=== PATIENT | male | born 1960 | race Caucasian/White ===

== ENCOUNTER 2017-11-30 08:43 | Emergency (ER) | payer OTHER, MEDICAID ==
[~2017-11-30] VITALS: Ht 170.2 cm; Wt 64.0 kg
[~2017-11-30 08:43] MED LIST: CEPH500C5 PO; HYDR-569 PO; INSU100V9 SQ; NAPR-1154 PO; SULF1TAB49 PO; SYRI-641
[2017-11-30] MEDS ORDERED: LANTUS SQ (09:31)
[2017-11-30] MEDS ORDERED: NOVRI SQ (09:31)
[2017-11-30] MEDS ORDERED: [UNRECOGNIZED DRUG - CODE] SQ (09:31)
[2017-11-30 09:40] VITALS: BP 128/83
== END 2017-11-30 09:45 | disposition home or self-care (01) ==
LOC: ER 08:43
DX: Z76.0 Encounter for issue of repeat prescription (principal); E11.9 Type 2 diabetes mellitus without complications; Z59.0 Homelessness; Z56.0 Unemployment, unspecified; Z60.2 Problems related to living alone; Z79.4 Long term (current) use of insulin; Z79.899 Other long term (current) drug therapy
CPT/HCPCS: 99283

== ENCOUNTER 2018-01-20 19:33 | Emergency (ER) | payer OTHER, MEDICAID ==
[~2018-01-20] VITALS: Ht 170.2 cm; Wt 60.0 kg
[~2018-01-20 19:33] MED LIST changes: +GABA300C PO; +INSU100V11 SQ; +NOVRI SQ; +[UNRECOGNIZED DRUG - CODE] SQ
[2018-01-20] MEDS ORDERED: sulfamethoxazole/trimethoprim DS (800/160mg) tablet PO ONE (20:10)
[2018-01-20] MEDS ORDERED: [UNRECOGNIZED DRUG - CODE] (20:15)
[2018-01-20] MEDS ORDERED: GABA-532 PO (20:15)
[2018-01-20] MEDS ORDERED: LANTUS SQ (20:15)
[2018-01-20] MEDS ORDERED: NOVRI SQ (20:15)
[2018-01-20] MEDS ORDERED: [UNRECOGNIZED DRUG - CODE] (20:15)
[2018-01-20] MEDS ORDERED: BACDS PO (20:15)
[2018-01-20] MEDS ORDERED: [UNRECOGNIZED DRUG - CODE] (20:15)
[2018-01-20 20:43] VITALS: BP 124/77
== END 2018-01-20 20:47 | disposition home or self-care (01) ==
LOC: ER 19:33
DX: L02.416 Cutaneous abscess of left lower limb (principal); L02.01 Cutaneous abscess of face; L02.415 Cutaneous abscess of right lower limb; E10.9 Type 1 diabetes mellitus without complications; Z76.0 Encounter for issue of repeat prescription; Z59.0 Homelessness; Z56.0 Unemployment, unspecified; Z79.4 Long term (current) use of insulin; Z79.899 Other long term (current) drug therapy
CPT/HCPCS: 82948; 99283

== ENCOUNTER 2018-01-30 20:07 | Emergency (ER) | payer OTHER, MEDICAID ==
[~2018-01-30] VITALS: Ht 170.2 cm; Wt 60.6 kg
[~2018-01-30 20:07] MED LIST changes: +BACDS PO; +GABA-532 PO; +LANTUS SQ; +[UNRECOGNIZED DRUG - CODE]; +[UNRECOGNIZED DRUG - CODE]; +[UNRECOGNIZED DRUG - CODE]
[2018-01-30] MEDS ORDERED: LEVO500T89 PO (21:41)
[2018-01-30 22:38] VITALS: BP 139/71
== END 2018-01-30 22:44 | disposition home or self-care (01) ==
LOC: ER 20:07
DX: L03.031 Cellulitis of right toe (principal); E10.621 Type 1 diabetes mellitus with foot ulcer; L97.519 Non-pressure chronic ulcer of other part of right foot with unspecified severity; E10.65 Type 1 diabetes mellitus with hyperglycemia; Z79.4 Long term (current) use of insulin; Z60.2 Problems related to living alone; Z59.0 Homelessness; Z56.0 Unemployment, unspecified; Z79.899 Other long term (current) drug therapy
CPT/HCPCS: 73660; 82948; 99284

== ENCOUNTER 2018-02-13 17:35 | Emergency (ER) | payer MEDICAID, OTHER ==
[~2018-02-13] VITALS: Ht 170.2 cm; Wt 60.6 kg
[~2018-02-13 17:35] MED LIST changes: -BACDS PO
[2018-02-13] MEDS ORDERED: insulin regular, human 10 units/0.1 ml syringe IV ONE (17:55)
[2018-02-13] MEDS ORDERED: normal saline 1000ML IV soln IV ONE (17:55)
[2018-02-13 18:16] LABS: BASOPHILS # (AUTO) 0.1 X10'3 (0-0.2); BASOPHILS % (AUTO) 0.8 % (0-1); EOSINOPHILS # (AUTO) 0.2 X10'3 (0-0.9); EOSINOPHILS % (AUTO) 2.3 % (0-6); HEMOGLOBIN 13.4 g/dl (14.0-17.9); LYMPHOCYTES # (AUTO) 1.2 X10'3 (1.1-4.8); LYMPHOCYTES % (AUTO) 17.4 % (21-51); MEAN CORPUSCULAR HEMOGLOBIN 30.5 PG (27.0-31.0); MEAN CORPUSCULAR HGB CONC 35.3 % (33.0-36.5); MEAN CORPUSCULAR VOLUME 86.2 FL (78-98); MEAN PLATELET VOLUME 7.9 FL (7.4-10.4); MONOCYTES # (AUTO) 0.5 X10'3 (0-0.9); MONOCYTES % (AUTO) 6.8 % (2-12); NEUTROPHILS # (AUTO) 4.9 X10'3 (1.8-7.7); NEUTROPHILS % (AUTO) 72.7 % (42-75); PLATELET COUNT 253 X10'3 (140-440); RED BLOOD COUNT 4.41 X10'6 (4.70-6.10); RED CELL DISTRIBUTION WIDTH 12.3 % (11.5-14.5); WHITE BLOOD COUNT 6.8 X10'3 (4.5-11.0)
[2018-02-13 18:17] LABS: CLARITY,URINE CLEAR (Clear); COLOR,URINE YELLOW (Yellow); GLUCOSE, URINE >=1000 mg/dl (Neg); KETONES,URINE NEGATIVE (Neg); LEUKOCYTE ESTERASE ,URINE NEGATIVE (Neg); NITRITES, URINE NEGATIVE (Neg); OCCULT BLOOD,URINE NEGATIVE (Neg); PH,URINE 5.5 (4.8-8.0); PROTEIN,URINE NEGATIVE (Neg); UROBILINOGEN,URINE 0.2 E.U/dL (0.2-1.0)
[2018-02-13 18:33] LABS: BACTERIA,URINE NONE SEEN /HPF (Neg); MUCUS STRANDS FEW /LPF (Neg); UA COLLECTION TYPE CLN CATCH MIDSTREAM; WBC,URINE NONE SEEN /HPF (0-4)
[2018-02-13 18:34] LABS: RBC,URINE 0-2 /HPF (0-2); SQUAMOUS EPITHELIAL CELL,UR FEW /LPF (FEW)
[2018-02-13 18:41] LABS: ABG BASE EXCESS 2.3 mmol/L (-2.0-3.0); ABG HCO3 25.8 mmol/L (22.0-26.0); ABG OXYGEN SATURATION 97.6 % (95-98); ABG PH (T) 7.463 (7.350-7.450); ABG PO2 (T) 111.8 mmHg (83-108); ALLEN'S TEST Positive; FCOHb 0.4 % (0.5-1.5); FMetHb 0.3 % (0.3-1.12); FO2Hb 96.9 % (94-100); PATIENT TEMPERATURE 37.3; TOTAL HEMOGLOBIN 13.1 G/dl (14.0-18.0)
[2018-02-13 19:09] LABS: ALANINE AMINOTRANSFERASE 35 U/L (12-78); ALBUMIN 3.2 G/DL (3.4-5.0); ALBUMIN/GLOBULIN RATIO 0.9 (1.1-1.5); ALKALINE PHOSPHATASE 137 IU/L (46-116); ANION GAP 9 (8-16); ASPARTATE AMINO TRANSFERASE 13 U/L (10-37); BILIRUBIN,TOTAL 0.3 MG/DL (0.1-1.0); BLOOD UREA NITROGEN 19 MG/DL (7-18); BUN/CREATININE RATIO 19.6 (5.4-32.0); CALCIUM 8.9 MG/DL (8.5-10.1); CHLORIDE 99 MMOL/L (99-107); CREATININE 0.97 MG/DL (0.60-1.10); MAGNESIUM 1.9 MG/DL (1.5-2.4); PHOSPHORUS 3.8 MG/DL (2.3-4.5); POTASSIUM 3.5 MMOL/L (3.5-5.1); SODIUM 137 MMOL/L (135-145); TOTAL CARBON DIOXIDE 29.2 MMOL/L (24-32); TOTAL PROTEIN 6.7 G/DL (6.4-8.2); eGFR 80 ML/MIN
[2018-02-13 19:13] LABS: GLUCOSE 479 MG/DL (70-104)
[2018-02-13 20:22] VITALS: BP 159/97
== END 2018-02-13 20:24 | disposition home or self-care (01) ==
LOC: ER 17:35
DX: R53.83 Other fatigue (principal); E10.65 Type 1 diabetes mellitus with hyperglycemia; Z59.0 Homelessness; Z79.4 Long term (current) use of insulin; Z56.0 Unemployment, unspecified; Z79.899 Other long term (current) drug therapy
CPT/HCPCS: 36415; 36600; 71045; 80053; 81001; 82803; 82948; 83605; 83735; 84100; 84145; 84439; 84443; 84484; 85018; 85025; 87040; 93005; 96361; 96374; 99285; J1815; J7030

== ENCOUNTER 2019-02-01 13:51 | Inpatient (IN) | payer MEDICAID, OTHER | END 2019-02-03 17:45 | disposition left against medical advice (07) | LOC: ER 13:51 → ED HOLD 17:05 → SUR 3N 23:00 | DX: M86.9 Osteomyelitis, unspecified (principal); E11.42 Type 2 diabetes mellitus with diabetic polyneuropathy; E11.69 Type 2 diabetes mellitus with other specified complication; E11.65 Type 2 diabetes mellitus with hyperglycemia; L03.90 Cellulitis, unspecified ==

== ENCOUNTER → 2019-02-05 | Emergency (ER) | payer MEDICAID, OTHER ==
[~2019-02-05] VITALS: Ht 170.2 cm; Wt 61.4 kg
[~2019-02-05] MED LIST changes: -CEPH500C5 PO; +CHOL10002 PO; +FLUO20CA39 PO; -GABA300C PO; -HYDR-569 PO; -INSU100V11 SQ; +INSU100V13 SQ; -INSU100V9 SQ; -LANTUS SQ; +LEVO500T89 PO; +MULT-933 PO; +MULT1TAB74 PO; -NAPR-1154 PO; -NOVRI SQ; +RISP0.5T74 PO; +RISP2TAB3 PO; +SIMV10TA6 PO; +SIMV20TA5 PO; -SULF1TAB49 PO; -SYRI-641; -[UNRECOGNIZED DRUG - CODE]; -[UNRECOGNIZED DRUG - CODE]; -[UNRECOGNIZED DRUG - CODE]; -[UNRECOGNIZED DRUG - CODE] SQ
[2019-02-05 16:51] VITALS: BP 140/65
--- NOTE | 2019-02-05 18:13 | NUR ---
FOLLOW UP WITH SURGEON SOON POSSIBLE
== END | disposition home or self-care (01) ==
LOC: ER 16:12
DX: Z48.01 Encounter for change or removal of surgical wound dressing (principal); E11.42 Type 2 diabetes mellitus with diabetic polyneuropathy; Z98.890 Other specified postprocedural states; Z59.0 Homelessness; Z56.0 Unemployment, unspecified; Z88.5 Allergy status to narcotic agent; Z79.899 Other long term (current) drug therapy; Z79.4 Long term (current) use of insulin
CPT/HCPCS: 99284

== ENCOUNTER 2019-02-11 14:22 | Emergency (ER) | payer MEDICAID, OTHER ==
[~2019-02-11] VITALS: Ht 170.2 cm; Wt 63.6 kg
[~2019-02-11 14:22] MED LIST changes: -LEVO500T89 PO; -MULT1TAB74 PO; -RISP0.5T74 PO; -SIMV20TA5 PO
[2019-02-11 15:31] LABS: BASOPHILS # (AUTO) 0.1 X10'3 (0-0.2); BASOPHILS % (AUTO) 0.6 % (0-1); EOSINOPHILS % (AUTO) 0.4 % (0-6); HEMATOCRIT 30.8 % (42.0-52.0); HEMOGLOBIN 10.4 g/dl (14.0-17.9); LYMPHOCYTES # (AUTO) 0.4 X10'3 (1.1-4.8); LYMPHOCYTES % (AUTO) 5.1 % (21-51); MEAN CORPUSCULAR HEMOGLOBIN 28.6 PG (27.0-31.0); MEAN CORPUSCULAR HGB CONC 33.6 g/dL (33.0-36.5); MEAN CORPUSCULAR VOLUME 84.9 FL (78-98); MEAN PLATELET VOLUME 6.8 FL (7.4-10.4); MONOCYTES # (AUTO) 0.6 X10'3 (0-0.9); MONOCYTES % (AUTO) 7.1 % (2-12); NEUTROPHILS # (AUTO) 7.3 X10'3 (1.8-7.7); NEUTROPHILS % (AUTO) 86.8 % (42-75); PLATELET COUNT 423 X10'3 (140-440); RED BLOOD COUNT 3.63 X10'6 (4.70-6.10); WHITE BLOOD COUNT 8.4 X10'3 (4.5-11.0)
[2019-02-11] MEDS ORDERED: CefTRIAXone/D5W-Rocephin 1gm 50 ML IV ONE (15:35)
[2019-02-11] MEDS ORDERED: normal saline 1000ML IV soln IVB ONE (15:35)
[2019-02-11 15:41] LABS: PROTHROMBIN TIME 9.8 SECONDS (9.0-12.0)
[2019-02-11 15:54] LABS: ALANINE AMINOTRANSFERASE 23 U/L (12-78); ALBUMIN 3.1 G/DL (3.4-5.0); ALBUMIN/GLOBULIN RATIO 0.7 (1.1-1.5); ALKALINE PHOSPHATASE 103 IU/L (46-116); ANION GAP 10 (8-16); ASPARTATE AMINO TRANSFERASE 14 U/L (10-37); BILIRUBIN,TOTAL 0.3 MG/DL (0.1-1.0); BLOOD UREA NITROGEN 27 MG/DL (7-18); BUN/CREATININE RATIO 20.5 (5.4-32.0); CALCIUM 9.3 MG/DL (8.5-10.1); CHLORIDE 95 MMOL/L (99-107); CREATININE 1.32 MG/DL (0.60-1.10); POTASSIUM 3.9 MMOL/L (3.5-5.1); SODIUM 131 MMOL/L (135-145); TOTAL CARBON DIOXIDE 26.3 MMOL/L (24-32); TOTAL PROTEIN 7.4 G/DL (6.4-8.2); eGFR 56 ML/MIN
[2019-02-11 16:01] LABS: GLUCOSE 647 MG/DL (70-104)
[2019-02-11] MEDS ORDERED: insulin regular, human 10 units/0.1 ml syringe IV ONE (16:15)
--- NOTE | 2019-02-11 17:15 | NUR ---
patient received in bed 5.
--- NOTE | 2019-02-11 17:30 | NUR ---
unable to void at this time,urinal at bedside.
[2019-02-11 17:32] VITALS: BP_DIAS 68
[2019-02-11] MEDS ORDERED: SIMV20TA5 PO (17:36)
[2019-02-11] MEDS ORDERED: FLUO20CA39 PO (17:36)
[2019-02-11] MEDS ORDERED: GABA-532 PO (17:37)
[2019-02-11] MEDS ORDERED: MULT1TAB74 PO (17:37)
[2019-02-11] MEDS ORDERED: RISP0.5T74 PO (17:37)
[2019-02-11] MEDS ORDERED: LEVO500T89 PO (17:54)
== END 2019-02-11 18:16 | disposition home or self-care (01) ==
LOC: ER 14:22
DX: T87.43 Infection of amputation stump, right lower extremity (principal); T87.81 Dehiscence of amputation stump; E11.65 Type 2 diabetes mellitus with hyperglycemia; Z88.5 Allergy status to narcotic agent; Z79.899 Other long term (current) drug therapy; Z59.0 Homelessness; Z56.0 Unemployment, unspecified
CPT/HCPCS: 36415; 80053; 82948; 83605; 84145; 85025; 85610; 87040; 96365; 96375; 99283; J0696; J1815; J7030

== ENCOUNTER 2019-02-15 22:26 | Emergency (ER) | payer MEDICAID, OTHER ==
[~2019-02-15 22:26] MED LIST changes: -CHOL10002 PO; -INSU100V13 SQ; +LEVO500T89 PO; -MULT-933 PO; +MULT1TAB74 PO; +RISP0.5T74 PO; -RISP2TAB3 PO; -SIMV10TA6 PO; +SIMV20TA5 PO
--- NOTE | 2019-02-15 23:18 | NUR ---
No number on file for LWOB follow up. DR. Young informed.
[2019-02-16] MEDS ORDERED: INSU100C10 SQ (13:09)
[2019-02-16] MEDS ORDERED: CHOL100046 PO ×2 (13:09)
[2019-02-16] MEDS ORDERED: LANTUS SQ (13:09)
== END 2019-02-15 23:00 | disposition left against medical advice (07) ==
LOC: ER 22:27
DX: M79.673 Pain in unspecified foot (principal); Z53.21 Procedure and treatment not carried out due to patient leaving prior to being seen by health care provider

== ENCOUNTER 2019-02-16 09:57 | Inpatient (IN) | payer OTHER, MEDICAID ==
[~2019-02-16] VITALS: Ht 170.2 cm; Wt 62.7 kg
[2019-02-16] MEDS ORDERED: morphine 4 MG/ML inj SYRINge IV ONE (11:35)
[2019-02-16] MEDS ORDERED: piperacillin/tazo 3.375gm/50ml 50 ML IV ONE (11:35)
[2019-02-16 12:10] LABS: BASOPHILS # (AUTO) 0.1 X10'3 (0-0.2); BASOPHILS % (AUTO) 0.8 % (0-1); EOSINOPHILS # (AUTO) 0.1 X10'3 (0-0.9); EOSINOPHILS % (AUTO) 0.9 % (0-6); HEMOGLOBIN 9.8 g/dl (14.0-17.9); LYMPHOCYTES # (AUTO) 0.7 X10'3 (1.1-4.8); MEAN CORPUSCULAR HEMOGLOBIN 28.7 PG (27.0-31.0); MEAN CORPUSCULAR HGB CONC 33.8 g/dL (33.0-36.5); MEAN CORPUSCULAR VOLUME 84.7 FL (78-98); MEAN PLATELET VOLUME 6.6 FL (7.4-10.4); MONOCYTES # (AUTO) 0.6 X10'3 (0-0.9); NEUTROPHILS # (AUTO) 5.4 X10'3 (1.8-7.7); NEUTROPHILS % (AUTO) 79.3 % (42-75); PLATELET COUNT 520 X10'3 (140-440); RED BLOOD COUNT 3.43 X10'6 (4.70-6.10); RED CELL DISTRIBUTION WIDTH 15.1 % (11.5-14.5); WHITE BLOOD COUNT 6.8 X10'3 (4.5-11.0)
[2019-02-16 12:33] LABS: ALANINE AMINOTRANSFERASE 20 U/L (12-78); ALBUMIN 2.6 G/DL (3.4-5.0); ALBUMIN/GLOBULIN RATIO 0.6 (1.1-1.5); ALKALINE PHOSPHATASE 105 IU/L (46-116); ANION GAP 7 (8-16); ASPARTATE AMINO TRANSFERASE 12 U/L (10-37); BILIRUBIN,TOTAL 0.2 MG/DL (0.1-1.0); BLOOD UREA NITROGEN 16 MG/DL (7-18); BUN/CREATININE RATIO 17.4 (5.4-32.0); CALCIUM 8.5 MG/DL (8.5-10.1); CHLORIDE 100 MMOL/L (99-107); CREATININE 0.92 MG/DL (0.60-1.10); SODIUM 134 MMOL/L (135-145); TOTAL CARBON DIOXIDE 27.3 MMOL/L (24-32); TOTAL PROTEIN 6.9 G/DL (6.4-8.2); eGFR 84 ML/MIN
[2019-02-16 12:36] LABS: GLUCOSE 526 MG/DL (70-104)
--- NOTE | 2019-02-16 12:39 | NUR ---
DR CLARK NOTIFIED OF CRITICAL BLOOD GLUCOSE OF [phone] CALLED BY LAB
[2019-02-16] MEDS ORDERED: normal saline 1000ML IV soln IVB ONE (12:55)
[2019-02-16] MEDS ORDERED: INSU100C10 SQ (13:09)
[2019-02-16] MEDS ORDERED: CHOL100046 PO ×2 (13:09)
[2019-02-16] MEDS ORDERED: LANTUS SQ (13:09)
[2019-02-16] MEDS ORDERED: magnesium 4gm in 100ml NS 100 ML IV PRN (13:55)
[2019-02-16] MEDS ORDERED: potassium Cl 40MEQ/NS 500ml 500 ML IV PRN ×2 (13:55)
[2019-02-16] MEDS ORDERED: ondansetron/PF 4mg/2ml inj IV PRN (13:55)
[2019-02-16] MEDS ORDERED: magnesium Cl slow-release 64mg tablet PO PRN (13:55)
[2019-02-16] MEDS ORDERED: morphine 2 MG/ML inj. syringe IV PRN (13:55)
[2019-02-16] MEDS ORDERED: potassium Cl 20 mEq SR tablet PO PRN ×2 (13:55)
[2019-02-16] MEDS ORDERED: HYDROcodone/acetaminophen 5mg/325mg tablet PO PRN (13:55)
[2019-02-16] MEDS ORDERED: vancomycin/NS 1 GM ADD-VANTAGE 250 ML IV SCH (13:55)
[2019-02-16] MEDS ORDERED: magnesium hydroxide 30ml (MOM) UD suspension PO PRN (13:55)
[2019-02-16] MEDS ORDERED: magnesium 2GM in 50ml NS 50 ML IV PRN (13:55)
[2019-02-16] MEDS ORDERED: bisacodyl 10mg suppository rectal RC PRN (13:55)
[2019-02-16] MEDS ORDERED: acetaminophen 325mg tablet PO PRN (13:55)
[2019-02-16] MEDS ORDERED: mag hydrox/Alum hydrox/simeth 30ml oral suspension PO PRN (13:55)
[2019-02-16] MEDS ORDERED: MESSAGE TO PHARMACY PO ONE (14:05)
[2019-02-16] MEDS ORDERED: dextrose 50%-water 50ml dispensing syringe IV PRN ×2 (14:05)
[2019-02-16] MEDS ORDERED: glucagon, human recombinant 1mg kit SUBCUT PRN (14:05)
[2019-02-16] MEDS ORDERED: dextrose ORAL solution 15 GM/59 ML bottle PO PRN (14:05)
--- NOTE | 2019-02-16 14:13 | NUR ---
PAGED TO UPDATE ABOUT FSBG OF 303.
--- NOTE | 2019-02-16 14:13 | NUR ---
UNABLE TO GIVE REPORT, NO NURSE ASSIGNED TO TAKE PATIENT. TOLD TO CALL BACK IN A FEW MINUTES.
[2019-02-16] MEDS: vancomycin/NS 1 GM ADD-VANTAGE 250 ML IV SCH (15:13)
--- NOTE | 2019-02-16 15:58 | NUR ---
I have received report from Alba.
[2019-02-16] MEDS: metroNIDAZOLE-Flagyl 500mg/NS 100 ML IV SCH ×2 (17:11→23:55)
[2019-02-16] MEDS: HYDROcodone/acetaminophen 10/325mg tab PO PRN ×2 (17:11→21:29)
[2019-02-16 18:00] VITALS: BP 118/74
--- NOTE | 2019-02-16 18:30 | NUR ---
Patient report given to Toni CRESPO
[2019-02-16] MEDS: potassium Cl 20mEq in NS 1,000 ML IV SCH (18:44)
[2019-02-16] MEDS: insulin Lispro (HumaLOG) vial - multi-dose SQ SCH (18:56)
[2019-02-16] MEDS ORDERED: non-formulary drug (Simvastatin* (Zocor*) 1 TAB) PO SCH (21:00)
[2019-02-16] MEDS: docusate sod 100mg capsule PO SCH (21:18)
[2019-02-16] MEDS: heparin, porcine 5000 units/ml vial SQ SCH (21:19)
[2019-02-16] MEDS: atorvastatin 10mg tablet PO SCH (21:19)
[2019-02-16] MEDS: vitamin D (cholecalciferol) 1,000 unit tablet PO SCH (21:19)
[2019-02-16] MEDS: gabapentin 300mg capsule PO SCH (21:20)
[2019-02-16] MEDS: risperiDONE 0.5mg tablet PO SCH (21:20)
[2019-02-16] MEDS: insulin glargine (Lantus) pen - multi-dose SQ SCH (21:22)
[2019-02-16 23:00] VITALS: BP 124/78
[2019-02-17] MEDS: vancomycin/NS 1 GM ADD-VANTAGE 250 ML IV SCH ×2 (03:00→14:56)
[2019-02-17] MEDS: HYDROcodone/acetaminophen 10/325mg tab PO PRN ×4 (04:25→22:03)
[2019-02-17 06:00] VITALS: BP 126/80
--- NOTE | 2019-02-17 06:10 | NUR ---
Patient in room ORTHO 4008. I have received report from DALIA CRESPO and had the opportunity to ask questions and assume patient care.
[2019-02-17] MEDS: potassium Cl 20mEq in NS 1,000 ML IV SCH ×2 (06:34→08:05)
--- NOTE | 2019-02-17 06:35 | NUR ---
PAIN REASSESSMENT NOT DONE PRIOR TO COMING ON SHIFT.
[2019-02-17 06:50] LABS: BASOPHILS # (AUTO) 0.1 X10'3 (0-0.2); BASOPHILS % (AUTO) 1.2 % (0-1); EOSINOPHILS # (AUTO) 0.2 X10'3 (0-0.9); EOSINOPHILS % (AUTO) 2.8 % (0-6); HEMATOCRIT 28.5 % (42.0-52.0); HEMOGLOBIN 9.5 g/dl (14.0-17.9); LYMPHOCYTES # (AUTO) 1.3 X10'3 (1.1-4.8); LYMPHOCYTES % (AUTO) 22.3 % (21-51); MEAN CORPUSCULAR HEMOGLOBIN 28.3 PG (27.0-31.0); MEAN CORPUSCULAR HGB CONC 33.4 g/dL (33.0-36.5); MEAN CORPUSCULAR VOLUME 84.9 FL (78-98); MEAN PLATELET VOLUME 6.8 FL (7.4-10.4); MONOCYTES # (AUTO) 0.5 X10'3 (0-0.9); MONOCYTES % (AUTO) 8.8 % (2-12); NEUTROPHILS # (AUTO) 3.7 X10'3 (1.8-7.7); NEUTROPHILS % (AUTO) 64.9 % (42-75); PLATELET COUNT 457 X10'3 (140-440); RED BLOOD COUNT 3.36 X10'6 (4.70-6.10); RED CELL DISTRIBUTION WIDTH 14.3 % (11.5-14.5); WHITE BLOOD COUNT 5.7 X10'3 (4.5-11.0)
[2019-02-17 07:10] LABS: ALANINE AMINOTRANSFERASE 17 U/L (12-78); ALBUMIN 2.2 G/DL (3.4-5.0); ALBUMIN/GLOBULIN RATIO 0.6 (1.1-1.5); ALKALINE PHOSPHATASE 88 IU/L (46-116); ANION GAP 8 (8-16); ASPARTATE AMINO TRANSFERASE 12 U/L (10-37); BILIRUBIN,TOTAL 0.2 MG/DL (0.1-1.0); BLOOD UREA NITROGEN 14 MG/DL (7-18); BUN/CREATININE RATIO 24.1 (5.4-32.0); CALCIUM 8.4 MG/DL (8.5-10.1); CHLORIDE 106 MMOL/L (99-107); CREATININE 0.58 MG/DL (0.60-1.10); GLUCOSE 212 MG/DL (70-104); MAGNESIUM 1.7 MG/DL (1.5-2.4); POTASSIUM 3.5 MMOL/L (3.5-5.1); SODIUM 141 MMOL/L (135-145); TOTAL CARBON DIOXIDE 27.4 MMOL/L (24-32); TOTAL PROTEIN 6.1 G/DL (6.4-8.2); eGFR > 90 ML/MIN
[2019-02-17] MEDS ORDERED: non-formulary drug (Multivitamins 1 TAB) PO SCH (08:00)
[2019-02-17] MEDS: K and/or MAG REPLACEMENT MC SCH (08:00)
[2019-02-17] MEDS: docusate sod 100mg capsule PO SCH ×2 (08:03→19:27)
[2019-02-17] MEDS: vitamin D (cholecalciferol) 1,000 unit tablet PO SCH ×2 (08:03→19:30)
[2019-02-17] MEDS: CefTRIAXone/D5W-Rocephin 1gm 50 ML IV SCH (08:04)
[2019-02-17] MEDS: FLUoxetine 20mg capsule PO SCH (08:04)
[2019-02-17] MEDS: heparin, porcine 5000 units/ml vial SQ SCH ×2 (08:04→19:28)
[2019-02-17] MEDS: multivitamins, therapeutics tablet PO SCH (08:04)
[2019-02-17] MEDS: insulin Lispro (HumaLOG) vial - multi-dose SQ SCH ×2 (08:21→19:26)
[2019-02-17] MEDS: metroNIDAZOLE-Flagyl 500mg/NS 100 ML IV SCH ×2 (08:25→16:42)
[2019-02-17 10:00] VITALS: BP 113/58
[2019-02-17] MEDS: dextrose ORAL solution 15 GM/59 ML bottle PO PRN (12:13)
[2019-02-17] MEDS: morphine 2 MG/ML inj. syringe IV PRN (14:57)
--- NOTE | 2019-02-17 15:30 | NUR ---
REMOVED THE SUTURES PER DR TORO'S REQUEST. APPLIED XEROFOAM, GAUZE AND KERLIX.
--- NOTE | 2019-02-17 15:42 | NUR ---
DM consult, patient has A1c of 11.1, recently admitted and discharged Prior visit RD attempted verbal DM education however patient refused ed. Presented back to ED with infection at site of recent transmetatarsal amputation and the wound appears to have dehisced with cellulitis per H&P note. Patient is homeless. Patient seen at bedside today by RD for written and verbal DM and high protein education. Patient was receptive to education today. Discussed importance of eating very high protein food for healing from his infection and wound. D/w patient, RN, and dietary to provide double protein at all meals. Patient would benefit from additional protein supplementation using Genaro, recommend Genaro smoothies with breakfast and dinner. Patient agrees, discussed with RN and notified MD. Educated patient on importance of keeping his blood glucose under control to aid in wound heal. Patient has RD contact information. Will continue to follow. Recommend: 1. continue carb controlled diet 2. continue double protein with all meals 3. Recommend adding high protein smoothies containing Genaro with breakfast and dinner meals, notified MD 4. Weight per rx Addendum: 02/17/19 at [address] Amended: Links added.
[2019-02-17] MEDS: High Protein Smoothie Arginine/Glut./Ca2+Bmb (Juven 19.3pkt) 240ml cup PO SCH (17:30)
--- NOTE | 2019-02-17 18:00 | NUR ---
Problems reprioritized. Patient report given, questions answered & plan of care reviewed with LUISITO CRESPO.
[2019-02-17] MEDS: lactobacillus rhamnosus 10,000 MMU CELLS/CAPSULE PO SCH (19:27)
[2019-02-17] MEDS: atorvastatin 10mg tablet PO SCH (19:29)
[2019-02-17] MEDS: gabapentin 300mg capsule PO SCH (19:29)
[2019-02-17] MEDS: risperiDONE 0.5mg tablet PO SCH (22:04)
[2019-02-17] MEDS: insulin glargine (Lantus) pen - multi-dose SQ SCH (22:06)
[2019-02-18] MEDS: morphine 2 MG/ML inj. syringe IV PRN ×2 (00:25→18:41)
[2019-02-18] MEDS: metroNIDAZOLE-Flagyl 500mg/NS 100 ML IV SCH ×2 (00:29→09:06)
[2019-02-18] MEDS: potassium Cl 20mEq in NS 1,000 ML IV SCH ×3 (00:49→15:52)
[2019-02-18] MEDS ORDERED: VANCOMYCIN LEVEL IV ONE (02:30)
[2019-02-18] MEDS: vancomycin/NS 1 GM ADD-VANTAGE 250 ML IV SCH (03:05)
[2019-02-18 03:06] LABS: BASOPHILS # (AUTO) 0.1 X10'3 (0-0.2); BASOPHILS % (AUTO) 1.3 % (0-1); EOSINOPHILS # (AUTO) 0.2 X10'3 (0-0.9); EOSINOPHILS % (AUTO) 2.9 % (0-6); HEMATOCRIT 29.9 % (42.0-52.0); HEMOGLOBIN 9.9 g/dl (14.0-17.9); LYMPHOCYTES # (AUTO) 1.1 X10'3 (1.1-4.8); LYMPHOCYTES % (AUTO) 19.8 % (21-51); MEAN CORPUSCULAR HEMOGLOBIN 28.1 PG (27.0-31.0); MEAN CORPUSCULAR HGB CONC 33.3 g/dL (33.0-36.5); MEAN CORPUSCULAR VOLUME 84.2 FL (78-98); MEAN PLATELET VOLUME 6.5 FL (7.4-10.4); MONOCYTES # (AUTO) 0.5 X10'3 (0-0.9); MONOCYTES % (AUTO) 8.3 % (2-12); NEUTROPHILS # (AUTO) 3.7 X10'3 (1.8-7.7); NEUTROPHILS % (AUTO) 67.7 % (42-75); PLATELET COUNT 488 X10'3 (140-440); RED BLOOD COUNT 3.55 X10'6 (4.70-6.10); RED CELL DISTRIBUTION WIDTH 14.7 % (11.5-14.5); WHITE BLOOD COUNT 5.5 X10'3 (4.5-11.0)
[2019-02-18 03:18] LABS: ALANINE AMINOTRANSFERASE 27 U/L (12-78); ALBUMIN 2.2 G/DL (3.4-5.0); ALBUMIN/GLOBULIN RATIO 0.6 (1.1-1.5); ALKALINE PHOSPHATASE 104 IU/L (46-116); ANION GAP 5 (8-16); ASPARTATE AMINO TRANSFERASE 26 U/L (10-37); BILIRUBIN,TOTAL 0.1 MG/DL (0.1-1.0); BLOOD UREA NITROGEN 25 MG/DL (7-18); BUN/CREATININE RATIO 22.1 (5.4-32.0); CALCIUM 8.6 MG/DL (8.5-10.1); CHLORIDE 106 MMOL/L (99-107); CREATININE 1.13 MG/DL (0.60-1.10); GLUCOSE 85 MG/DL (70-104); MAGNESIUM 1.6 MG/DL (1.5-2.4); SODIUM 142 MMOL/L (135-145); TOTAL CARBON DIOXIDE 31.3 MMOL/L (24-32); TOTAL PROTEIN 6.1 G/DL (6.4-8.2); VANCOMYCIN,TROUGH 6.5 UG/ML (6.0-14.0); eGFR 67 ML/MIN
--- NOTE | 2019-02-18 03:38 | NUR ---
Patient in room ORTHO 4008. I have received report from AM RN and had the opportunity to ask questions and assume patient care.
[2019-02-18 06:00] VITALS: BP 100/54
--- NOTE | 2019-02-18 06:15 | NUR ---
Patient in room ORTHO 4008. I have received report from LUISITO CRESPO and had the opportunity to ask questions and assume patient care.
[2019-02-18] MEDS: K and/or MAG REPLACEMENT MC SCH (08:00)
[2019-02-18] MEDS: FLUoxetine 20mg capsule PO SCH (08:01)
[2019-02-18] MEDS: docusate sod 100mg capsule PO SCH ×2 (08:01→20:05)
[2019-02-18] MEDS: multivitamins, therapeutics tablet PO SCH (08:01)
[2019-02-18] MEDS: vitamin D (cholecalciferol) 1,000 unit tablet PO SCH (08:02)
[2019-02-18] MEDS: HYDROcodone/acetaminophen 10/325mg tab PO PRN ×3 (08:03→22:28)
[2019-02-18] MEDS: lactobacillus rhamnosus 10,000 MMU CELLS/CAPSULE PO SCH ×2 (08:03→20:05)
[2019-02-18] MEDS: CefTRIAXone/D5W-Rocephin 1gm 50 ML IV SCH (08:03)
[2019-02-18] MEDS: heparin, porcine 5000 units/ml vial SQ SCH ×2 (08:04→20:05)
[2019-02-18] MEDS: dextrose ORAL solution 15 GM/59 ML bottle PO PRN (08:04)
[2019-02-18] MEDS: High Protein Smoothie Arginine/Glut./Ca2+Bmb (Juven 19.3pkt) 240ml cup PO SCH (08:10)
[2019-02-18 10:20] VITALS: BP 94/47
[2019-02-18] MEDS: vancomycin inj 1,250 MG in NS 250ml IV soln IV SCH ×2 (10:43→22:29)
--- NOTE | 2019-02-18 16:04 | NUR ---
Patient upset but agreeable to extended PIV insertion. Extended PIV inserted to the right upper arm cephalic vein x 1 attempt without ultrasound. Elbert procedure well. Addendum: 02/18/19 at 1605 by Chayo Johns RN Amended: Links added.
[2019-02-18 18:00] VITALS: BP 156/74
--- NOTE | 2019-02-18 18:13 | NUR ---
PAGER ID: [phone] MESSAGE: [place] [id number] RE: VANESA [id number] PATIENT IS VERY ANXIOUS AND AGGITATED, CAN WE GIVE HIM SOMETHING PLEASE?
--- NOTE | 2019-02-18 18:50 | NUR ---
Problems reprioritized. Patient report given, questions answered & plan of care reviewed with LUISITO CRESPO.
--- NOTE | 2019-02-18 19:00 | NUR ---
Patient in room ORTHO 4008. I have received report from Harmony Sifuentes and had the opportunity to ask questions and assume patient care.
[2019-02-18] MEDS: atorvastatin 10mg tablet PO SCH (20:05)
[2019-02-18] MEDS: insulin glargine (Lantus) pen - multi-dose SQ SCH (21:00)
[2019-02-18 22:00] VITALS: BP 112/60
[2019-02-18] MEDS: gabapentin 300mg capsule PO SCH (22:29)
[2019-02-18] MEDS: risperiDONE 0.5mg tablet PO SCH (22:29)
[2019-02-19] MEDS: metroNIDAZOLE-Flagyl 750mg/NS 150 ML IV SCH ×3 (00:41→17:18)
[2019-02-19 06:37] LABS: BASOPHILS # (AUTO) 0.1 X10'3 (0-0.2); BASOPHILS % (AUTO) 1.3 % (0-1); EOSINOPHILS # (AUTO) 0.1 X10'3 (0-0.9); EOSINOPHILS % (AUTO) 2.2 % (0-6); HEMATOCRIT 31.3 % (42.0-52.0); HEMOGLOBIN 10.6 g/dl (14.0-17.9); MEAN CORPUSCULAR HEMOGLOBIN 28.6 PG (27.0-31.0); MEAN CORPUSCULAR HGB CONC 33.7 g/dL (33.0-36.5); MEAN CORPUSCULAR VOLUME 84.8 FL (78-98); MEAN PLATELET VOLUME 6.9 FL (7.4-10.4); MONOCYTES # (AUTO) 0.5 X10'3 (0-0.9); MONOCYTES % (AUTO) 8.5 % (2-12); NEUTROPHILS # (AUTO) 4.2 X10'3 (1.8-7.7); PLATELET COUNT 538 X10'3 (140-440); RED BLOOD COUNT 3.69 X10'6 (4.70-6.10); RED CELL DISTRIBUTION WIDTH 14.5 % (11.5-14.5); WHITE BLOOD COUNT 5.9 X10'3 (4.5-11.0)
--- NOTE | 2019-02-19 06:41 | NUR ---
Patient in room ORTHO 4008. I have received report from Marcell CRESPO and had the opportunity to ask questions and assume patient care.
[2019-02-19 06:43] VITALS: BP 124/79
[2019-02-19 06:51] LABS: ALANINE AMINOTRANSFERASE 26 U/L (12-78); ALBUMIN 2.3 G/DL (3.4-5.0); ALBUMIN/GLOBULIN RATIO 0.6 (1.1-1.5); ALKALINE PHOSPHATASE 115 IU/L (46-116); ANION GAP 6 (8-16); ASPARTATE AMINO TRANSFERASE 22 U/L (10-37); BILIRUBIN,TOTAL 0.1 MG/DL (0.1-1.0); BLOOD UREA NITROGEN 30 MG/DL (7-18); CALCIUM 8.7 MG/DL (8.5-10.1); CHLORIDE 104 MMOL/L (99-107); CREATININE 0.77 MG/DL (0.60-1.10); GLUCOSE 231 MG/DL (70-104); MAGNESIUM 1.9 MG/DL (1.5-2.4); POTASSIUM 4.3 MMOL/L (3.5-5.1); SODIUM 137 MMOL/L (135-145); TOTAL CARBON DIOXIDE 27.2 MMOL/L (24-32); TOTAL PROTEIN 6.3 G/DL (6.4-8.2); eGFR > 90 ML/MIN
[2019-02-19] MEDS: K and/or MAG REPLACEMENT MC SCH (08:00)
[2019-02-19] MEDS: potassium Cl 20mEq in NS 1,000 ML IV SCH ×2 (08:43→21:52)
[2019-02-19] MEDS: docusate sod 100mg capsule PO SCH ×2 (08:44→20:19)
[2019-02-19] MEDS: HYDROcodone/acetaminophen 10/325mg tab PO PRN ×2 (08:44→21:56)
[2019-02-19] MEDS: lactobacillus rhamnosus 10,000 MMU CELLS/CAPSULE PO SCH ×2 (08:44→20:19)
[2019-02-19] MEDS: heparin, porcine 5000 units/ml vial SQ SCH ×2 (08:45→20:19)
[2019-02-19] MEDS: FLUoxetine 20mg capsule PO SCH (08:46)
[2019-02-19] MEDS: insulin Lispro (HumaLOG) vial - multi-dose SQ SCH ×4 (09:03→22:06)
[2019-02-19 10:00] VITALS: BP 116/63
[2019-02-19] MEDS: vancomycin inj 1,250 MG in NS 250ml IV soln IV SCH ×2 (10:41→22:09)
--- NOTE | 2019-02-19 10:57 | NUR ---
Reassessment: Pt to continue with abx therapy for tx of suspected osteomyelitis per MD notes. Pt remains on CHO controlled diet with documented 100% PO intake of meals and ONS receiving double protein TID meeting nutrient needs with adequate protein for wound healing needs. [facility] 02/18. Will continue to follow. Recommend: 1. continue carb controlled diet 2. continue double protein with all meals 3. Recommend adding high protein smoothies containing Genaro with breakfast and dinner meals, notified MD 4. Weight per rx Addendum: 02/19/19 at [address] Amended: Links added.
[2019-02-19] MEDS: LORazepam 0.5 MG tablet PO PRN (11:52)
[2019-02-19] MEDS: morphine 2 MG/ML inj. syringe IV PRN ×2 (12:16→20:22)
[2019-02-19 18:00] VITALS: BP 119/52
--- NOTE | 2019-02-19 18:30 | NUR ---
Patient report given to Marcell CRESPO
--- NOTE | 2019-02-19 19:00 | NUR ---
Patient in room ORTHO 4008. I have received report from Carmen CRESPO and had the opportunity to ask questions and assume patient care.
[2019-02-19] MEDS: gabapentin 300mg capsule PO SCH (20:19)
[2019-02-19] MEDS: atorvastatin 10mg tablet PO SCH (20:19)
[2019-02-19] MEDS ORDERED: VANCOMYCIN LEVEL IV ONE (21:30)
[2019-02-19] MEDS: risperiDONE 0.5mg tablet PO SCH (21:56)
[2019-02-19 22:00] VITALS: BP 111/65
[2019-02-19] MEDS: insulin glargine (Lantus) pen - multi-dose SQ SCH (22:08)
[2019-02-20] MEDS: morphine 2 MG/ML inj. syringe IV PRN ×4 (00:30→20:50)
[2019-02-20 05:00] VITALS: BP 97/50
[2019-02-20] MEDS: potassium Cl 20mEq in NS 1,000 ML IV SCH ×3 (05:00→19:22)
--- NOTE | 2019-02-20 06:25 | NUR ---
Patient in room ORTHO 4008. I have received report from Marcell CRESPO and had the opportunity to ask questions and assume patient care.
[2019-02-20] MEDS: HYDROcodone/acetaminophen 10/325mg tab PO PRN ×2 (07:41→19:27)
[2019-02-20] MEDS: FLUoxetine 20mg capsule PO SCH (07:42)
[2019-02-20] MEDS: lactobacillus rhamnosus 10,000 MMU CELLS/CAPSULE PO SCH ×2 (07:42→20:55)
[2019-02-20] MEDS: heparin, porcine 5000 units/ml vial SQ SCH ×2 (07:42→20:55)
[2019-02-20] MEDS: docusate sod 100mg capsule PO SCH ×2 (07:42→20:00)
[2019-02-20] MEDS: K and/or MAG REPLACEMENT MC SCH (08:00)
[2019-02-20] MEDS: insulin Lispro (HumaLOG) vial - multi-dose SQ SCH ×3 (09:32→19:10)
--- NOTE | 2019-02-20 09:34 | NUR ---
PT went in to get patient up, and patient refused PT stating "I don't want to do PT, stop asking me about it!"
--- NOTE | 2019-02-20 09:46 | NUR ---
Patient refusing PT care.
--- NOTE | 2019-02-20 09:47 | NUR ---
Patient calling the sewing machine operator to connect him to the nurses station. Educated patient to use call light.
--- NOTE | 2019-02-20 09:50 | NUR ---
Patient complaining that call light is not working, call light tested by staff and is in working order.
[2019-02-20 10:00] VITALS: BP 105/59
--- NOTE | 2019-02-20 10:07 | NUR ---
Spoke with Licensed Direct Entry Midwife concerning patients carb count. Patient is getting double and triple amounts of food making his total carbohydrate intake over 100 per tray. Licensed Direct Entry Midwife will come and speak with patient about his intake and carb count.
--- NOTE | 2019-02-20 10:27 | NUR ---
Patient is requesting to be discharged, requesting to talk to his MD about being discharged. Educated patient that MD will make rounds today and he can discuss with them at that time.
--- NOTE | 2019-02-20 10:53 | NUR ---
Patient refusing to shower after being offered by staff.
--- NOTE | 2019-02-20 10:54 | NUR ---
Refused. Addendum: 02/20/19 at 1054 by Caty Jurado RN Amended: Links added.
[2019-02-20] MEDS: LORazepam 0.5 MG tablet PO PRN (10:55)
--- NOTE | 2019-02-20 11:13 | NUR ---
Dr. Rodriguez in to round on patient.
--- NOTE | 2019-02-20 11:17 | NUR ---
Student documentation: I have reviewed and agree with all interventions, assessments performed and documented by Sharda MOYER. Student Medication Administration: For this medication-pass time frame, all medication were reviewed, dispensed, administered and documented per hospital policy by Sharda MOYER with [facility].
--- NOTE | 2019-02-20 13:15 | NUR ---
Wound care done per wound care order.
[2019-02-20 18:00] VITALS: BP 128/73
--- NOTE | 2019-02-20 18:31 | NUR ---
Problems reprioritized. Patient report given, questions answered & plan of care reviewed with Barb CRESPO.
[2019-02-20] MEDS: atorvastatin 10mg tablet PO SCH (20:59)
[2019-02-20] MEDS: gabapentin 300mg capsule PO SCH (20:59)
[2019-02-20] MEDS: risperiDONE 0.5mg tablet PO SCH (20:59)
[2019-02-20] MEDS: insulin glargine (Lantus) pen - multi-dose SQ SCH (21:25)
--- NOTE | 2019-02-20 22:45 | NUR ---
2129 REFUSED NIGHT TIME ACU CHECK, BUT WANTED HIS LANTUS. GAVE 21 UNITS ORDERED, PATIENT BECAME ANGRY WHEN I GAVE THE LANTUS INTO HIS L UPPER ARM. YELLED THAT "YOU GAVE IT TO ME WRONG". EXPLAINED I GAVE IT IN A FREQUENTLY USED PLACE AND IT WAS GIVEN SUB Q IT SHOULD BE GIVEN. PATIENT SCREAMED THAT I GAVE IT IN THE MUSCLE AND WANTED ME TO LEAVE HIS ROOM. RC'D CALL SHORTLY AFTER FROM RAVI, NURSING SHIFT SUPERVISOR RN, PATIENT HAD CALLED HIM DEMANDING HE COME UP TO THE FLOOR IMMEDIATELY. SPOKE WITH RAVI AFTER HE WAS IN TO SEE THE PATIENT. STATED THE PATIENT WAS UPSET ABOUT THE FACT HE IS NOT GETTING THE 45 UNITS OF LANTUS HE NORMALLY WOULD GIVE HIMSELF AND THAT HE WILL BE LEAVING THE HOSPITAL TOMORROW. NO MENTION WAS MADE TO THE SHIFT SUPERVISOR RN BY THE PATIENT ABOUT "INSULIN GIVEN INTO HIS MUSCLE". I HAD ENCOURAGED THE PATIENT TO SPEAK TO THE MD IN THE MORNING ABOUT HIS CONCERNS REGARDING HIS LANTUS DOSE BUT HE TOLD ME "IT WON'T MATTER, THEY DO WHAT THEY WANT TO DO". AT THIS TIME, PATIENT IS RESTING QUIETLY
[2019-02-21] MEDS: potassium Cl 20mEq in NS 1,000 ML IV SCH ×3 (03:52→22:14)
[2019-02-21] MEDS: morphine 2 MG/ML inj. syringe IV PRN ×4 (05:16→18:57)
[2019-02-21 06:00] VITALS: BP_SYST 109; BP_SYST 128; BP_DIAS 73
[2019-02-21] MEDS: lactobacillus rhamnosus 10,000 MMU CELLS/CAPSULE PO SCH ×2 (07:59→20:00)
[2019-02-21] MEDS: docusate sod 100mg capsule PO SCH ×2 (07:59→20:00)
[2019-02-21] MEDS: HYDROcodone/acetaminophen 10/325mg tab PO PRN ×2 (08:00→22:13)
[2019-02-21] MEDS: K and/or MAG REPLACEMENT MC SCH (08:00)
[2019-02-21] MEDS: FLUoxetine 20mg capsule PO SCH (08:01)
[2019-02-21] MEDS: heparin, porcine 5000 units/ml vial SQ SCH ×2 (08:03→20:00)
[2019-02-21] MEDS: insulin Lispro (HumaLOG) vial - multi-dose SQ SCH ×3 (09:37→19:09)
[2019-02-21] MEDS: dextrose ORAL solution 15 GM/59 ML bottle PO PRN (12:34)
--- NOTE | 2019-02-21 14:05 | NUR ---
Reassessment: Pt PO 100% meals w/ additional protein meeting needs. [facility] 02/20. No nutrition concerns at this time. Recommend: 1. continue carb controlled diet 2. continue double protein with all meals 3. Recommend adding high protein smoothies containing Genaro with breakfast and dinner meals, notified 4. Weight per rx Addendum: 02/21/19 at [address] Amended: Links added.
[2019-02-21] MEDS ORDERED: High Protein Smoothie Arginine/Glut./Ca2+Bmb (Juven 19.3pkt) 240ml cup PO SCH (17:30)
--- NOTE | 2019-02-21 18:24 | NUR ---
PATIENT REPORT RECEIVED FROM OSMAN CRESPO.
--- NOTE | 2019-02-21 18:25 | NUR ---
Problems reprioritized. Patient report given, questions answered & plan of care reviewed with CHERIE García.
[2019-02-21] MEDS ORDERED: VANCOMYCIN LEVEL IV ONE (20:30)
[2019-02-21] MEDS: gabapentin 300mg capsule PO SCH (21:00)
[2019-02-21] MEDS: atorvastatin 10mg tablet PO SCH (21:00)
[2019-02-21] MEDS: insulin glargine (Lantus) pen - multi-dose SQ SCH (21:00)
[2019-02-21] MEDS: LORazepam 0.5 MG tablet PO PRN (22:13)
[2019-02-21] MEDS: risperiDONE 0.5mg tablet PO SCH (22:14)
--- NOTE | 2019-02-21 23:49 | NUR ---
PATIENT REFUSED 1800 AND 2200 VITALS. REFUSED HS BLOOD SUGAR CHECK. WILL ONLY TAKE ATIVAN, NORCO, RISPERIDONE, AND ANTIBIOTICS. PT IS IMPULSIVE, AND RESISTIVE TO CARE.
--- NOTE | 2019-02-22 06:23 | NUR ---
REFUSED LABS TODAY.
--- NOTE | 2019-02-22 06:38 | NUR ---
PATIENT REPORT GIVEN TO OSMAN CRESPO.
[2019-02-22] MEDS: FLUoxetine 20mg capsule PO SCH (07:33)
[2019-02-22] MEDS: lactobacillus rhamnosus 10,000 MMU CELLS/CAPSULE PO SCH (07:33)
[2019-02-22] MEDS: heparin, porcine 5000 units/ml vial SQ SCH (07:36)
[2019-02-22] MEDS: morphine 2 MG/ML inj. syringe IV PRN (07:37)
[2019-02-22] MEDS: insulin Lispro (HumaLOG) vial - multi-dose SQ SCH (10:25)
[2019-02-22] MEDS: HYDROcodone/acetaminophen 10/325mg tab PO PRN (10:29)
[2019-02-23] MEDS ORDERED: VANCOMYCIN LEVEL IV ONE (07:30)
== END 2019-02-22 14:00 | disposition home or self-care (01) | DRG 919 ==
LOC: ER 09:58 → ORTHO 4S 13:11
PROVIDERS: ADMIT Internal Medicine; ATTEND Family Medicine
DX: T81.31XA Disruption of external operation (surgical) wound, not elsewhere classified, initial encounter (principal); E43 Unspecified severe protein-calorie malnutrition; L03.115 Cellulitis of right lower limb; M86.8X8 Other osteomyelitis, other site; E87.1 Hypo-osmolality and hyponatremia; N17.9 Acute kidney failure, unspecified; E11.42 Type 2 diabetes mellitus with diabetic polyneuropathy; F31.9 Bipolar disorder, unspecified; E11.65 Type 2 diabetes mellitus with hyperglycemia; E78.5 Hyperlipidemia, unspecified; Y83.5 Amputation of limb(s) as the cause of abnormal reaction of the patient, or of later complication, without mention of misadventure at the time of the procedure; E11.69 Type 2 diabetes mellitus with other specified complication; B95.62 Methicillin resistant Staphylococcus aureus infection as the cause of diseases classified elsewhere; D64.9 Anemia, unspecified; F41.1 Generalized anxiety disorder; Z56.0 Unemployment, unspecified; Z59.0 Homelessness; Z89.421 Acquired absence of other right toe(s); Z79.899 Other long term (current) drug therapy; Z68.21 Body mass index [BMI] 21.0-21.9, adult; Y92.89 Other specified places as the place of occurrence of the external cause
CPT/HCPCS: 36415; 73630; 73718; 80053; 80202; 82948; 83605; 83735; 85025; 85610; 87040; 87070; 96365; 96375; 97110; 97116; 97161; 97530; 99285; G0378; J0696; J1644; J1815; J2270; J2543; J3370; J3490; J7030

== ENCOUNTER 2019-03-10 11:00 | Day surgery (SDC) | payer OTHER, MEDICAID ==
[~2019-03-10 11:00] MED LIST changes: +CHOL100046 PO; +INSU100C10 SQ; +LANTUS SQ; -LEVO500T89 PO
[2019-03-10] MEDS ORDERED: LIDOcaine 4% (40 mg/ml) topical solution 50ml ONE (11:44)
--- NOTE | 2019-03-10 13:00 | NUR ---
Patient ambulated independently from [facility] and was admitted to outpatient wound care for physician visit with Ravinder Watson MD. Placed in contact isolation precautions per hospital policy. No dressing, wet sock to wound on right foot, TMA from 02/03/19 inpatient is removed, wound cleansed and lidocaine 4% applied per order. Patient is moaning in pain, agitated and all history is obtained from medical record. Patient states he is living in the street since discharge from inpatient. Patient asks for several cups of water stating he is "dehydrated". 1145 - Dr. Watson at bedside accompanied by RN. Wound assessed, time out performed by MD/RN. Wound debrided as detailed in the physician progress/procedure note. Plan of care discussed with patient. Dressings placed per MD orders. Patient is agitated about plan of care and is asking for a wound vac. Iodoform 1/2" gauze and kerlex/Reginaldo wrap and off loading shoe placed per MD orders. Patient is instructed to seek group home and return to the clinic on Thursday for reevaluation of wound. Patient is advised to go to the [facility] and RN offers to call there for a medical bed. Patient changed his mind several times during the discussion from going to the [facility], going to his niece's house, going home to his mother in [place] and then asked for a taxi to take him to [place] [address] and states he has money to pay for this. Patient then states he has to have a bowel movement and is instructed by RN to return to [facility] when finished for accucheck. Blood glucose check is 550 at 12:21. MD notified. Patient is taken up to ER in wheelchair by RN with extra dressings, dry socks, off loading shoe and crutches for further evaluation. Patient instructed on the signs and symptoms of infection and to call the [facility] if any occur or to go to the ED if we are closed: Increased pain in wound Increase in drainage from the wound Redness in the skin surrounding the wound Bleeding from the wound Temperature of 101 or greater Patient instructed that the weight of their body puts a large amount of pressure on their wounds. This pressure keeps the new tissue from growing and inhibits new blood vessels from forming. Explained that, if they continue to bear weight on a body part that has a wound, the time it takes to heal the wound increases, the wound may get worse or the wound may not heal at all. Patient verbalized understanding of all discharge instructions and plan of care and is taken via wheelchair with all of his belongings by RN up to ED; security is informed about patient's shopping cart of belongings in front of the hospital with all of patient's worldly belongings. salvage mechanic called his policy change clerks supervisor about the shopping cart and is told there is nothing we can do about it.
== END 2019-03-10 12:37 | disposition home or self-care (01) ==
LOC: WOUND CARE 11:00
PROVIDERS: ATTEND Surgery
DX: T87.89 Other complications of amputation stump (principal); E11.621 Type 2 diabetes mellitus with foot ulcer; L97.514 Non-pressure chronic ulcer of other part of right foot with necrosis of bone; E11.65 Type 2 diabetes mellitus with hyperglycemia; E11.42 Type 2 diabetes mellitus with diabetic polyneuropathy; E78.5 Hyperlipidemia, unspecified; E11.69 Type 2 diabetes mellitus with other specified complication; M86.8X7 Other osteomyelitis, ankle and foot; E43 Unspecified severe protein-calorie malnutrition; F31.9 Bipolar disorder, unspecified; F41.1 Generalized anxiety disorder; Z79.4 Long term (current) use of insulin; Z68.21 Body mass index [BMI] 21.0-21.9, adult; Z79.899 Other long term (current) drug therapy; Z87.891 Personal history of nicotine dependence; Z98.890 Other specified postprocedural states; Y83.5 Amputation of limb(s) as the cause of abnormal reaction of the patient, or of later complication, without mention of misadventure at the time of the procedure
CPT/HCPCS: 11042; 36416; 82948; A6266; L3260; A6446; A6449

== ENCOUNTER 2019-03-10 12:32 | Emergency (ER) | payer OTHER, MEDICAID ==
[~2019-03-10] VITALS: Ht 170.2 cm; Wt 63.6 kg
[2019-03-10 13:33] LABS: BASOPHILS # (AUTO) 0.1 X10'3 (0-0.2); BASOPHILS % (AUTO) 0.6 % (0-1); EOSINOPHILS # (AUTO) 0.1 X10'3 (0-0.9); EOSINOPHILS % (AUTO) 0.7 % (0-6); HEMATOCRIT 36.7 % (42.0-52.0); HEMOGLOBIN 12.3 g/dl (14.0-17.9); LYMPHOCYTES # (AUTO) 0.3 X10'3 (1.1-4.8); LYMPHOCYTES % (AUTO) 3.8 % (21-51); MEAN CORPUSCULAR HEMOGLOBIN 28.6 PG (27.0-31.0); MEAN CORPUSCULAR HGB CONC 33.5 g/dL (33.0-36.5); MEAN CORPUSCULAR VOLUME 85.4 FL (78-98); MEAN PLATELET VOLUME 7.4 FL (7.4-10.4); MONOCYTES # (AUTO) 0.5 X10'3 (0-0.9); MONOCYTES % (AUTO) 5.2 % (2-12); NEUTROPHILS % (AUTO) 89.7 % (42-75); PLATELET COUNT 290 X10'3 (140-440); WHITE BLOOD COUNT 8.9 X10'3 (4.5-11.0)
--- NOTE | 2019-03-10 13:33 | NUR ---
CALLED LAB ABOUT UA THAT WAS PREVIOUSLY SENT. STATED WORKING ON IT CURRENTLY.
[2019-03-10 13:49] LABS: ALANINE AMINOTRANSFERASE 24 U/L (12-78); ALBUMIN 3.4 G/DL (3.4-5.0); ALBUMIN/GLOBULIN RATIO 0.8 (1.1-1.5); ALKALINE PHOSPHATASE 215 IU/L (46-116); ANION GAP 3 (8-16); ASPARTATE AMINO TRANSFERASE 10 U/L (10-37); BILIRUBIN,TOTAL 0.4 MG/DL (0.1-1.0); BLOOD UREA NITROGEN 17 MG/DL (7-18); BUN/CREATININE RATIO 20.2 (5.4-32.0); CALCIUM 9.3 MG/DL (8.5-10.1); CHLORIDE 95 MMOL/L (99-107); CREATININE 0.84 MG/DL (0.60-1.10); PHOSPHORUS 3.4 MG/DL (2.3-4.5); POTASSIUM 4.4 MMOL/L (3.5-5.1); SODIUM 130 MMOL/L (135-145); TOTAL CARBON DIOXIDE 31.8 MMOL/L (24-32); TOTAL PROTEIN 7.8 G/DL (6.4-8.2); eGFR > 90 ML/MIN
[2019-03-10 13:50] LABS: GLUCOSE 528 MG/DL (70-104)
[2019-03-10 13:54] LABS: CLARITY,URINE CLEAR (Clear); COLOR,URINE STRAW (Yellow); GLUCOSE, URINE >=1000 mg/dl (Neg); KETONES,URINE NEGATIVE (Neg); LEUKOCYTE ESTERASE ,URINE NEGATIVE (Neg); NITRITES, URINE NEGATIVE (Neg); OCCULT BLOOD,URINE NEGATIVE (Neg); PH,URINE 5.5 (4.8-8.0); PROTEIN,URINE NEGATIVE (Neg); UROBILINOGEN,URINE 0.2 E.U/dL (0.2-1.0)
[2019-03-10 14:00] LABS: UA COLLECTION TYPE CLN CATCH MIDSTREAM
[2019-03-10 14:01] LABS: BACTERIA,URINE FEW /HPF (Neg); RBC,URINE 0-2 /HPF (0-2); SQUAMOUS EPITHELIAL CELL,UR FEW /LPF (FEW); WBC,URINE 0-4 /HPF (0-4)
[2019-03-10] MEDS ORDERED: normal saline 1000ml 1,000 ML IV ONE (14:05)
[2019-03-10] MEDS ORDERED: insulin regular, human 10 units/0.1 ml syringe IV ONE (14:05)
[2019-03-10 16:23] VITALS: BP 108/66
== END 2019-03-10 16:27 | disposition home or self-care (01) ==
LOC: ER 12:32
DX: E11.65 Type 2 diabetes mellitus with hyperglycemia (principal); E86.0 Dehydration; E11.42 Type 2 diabetes mellitus with diabetic polyneuropathy; Z59.0 Homelessness; Z56.0 Unemployment, unspecified; Z98.890 Other specified postprocedural states; Z79.899 Other long term (current) drug therapy; Z79.4 Long term (current) use of insulin
CPT/HCPCS: 36415; 80053; 81001; 82948; 83735; 84100; 84484; 85025; 96361; 96374; 99284; J1815; J7030

== ENCOUNTER 2019-05-19 18:31 | Emergency (ER) | payer OTHER, MEDICAID ==
[~2019-05-19] VITALS: Ht 170.2 cm; Wt 48.5 kg
[~2019-05-19 18:31] MED LIST changes: +CEPH-571 PO
[2019-05-19 18:53] VITALS: BP 116/73
[2019-05-19] MEDS ORDERED: CEPH250T PO (21:57)
== END 2019-05-19 22:23 | disposition home or self-care (01) ==
LOC: ER 18:32
DX: S80.812A Abrasion, left lower leg, initial encounter (principal); E11.622 Type 2 diabetes mellitus with other skin ulcer; L97.919 Non-pressure chronic ulcer of unspecified part of right lower leg with unspecified severity; E11.42 Type 2 diabetes mellitus with diabetic polyneuropathy; F31.9 Bipolar disorder, unspecified; Z98.890 Other specified postprocedural states; Z59.0 Homelessness; Z60.2 Problems related to living alone; Z56.0 Unemployment, unspecified; Z79.4 Long term (current) use of insulin; Z79.899 Other long term (current) drug therapy; X58.XXXA Exposure to other specified factors, initial encounter; Y93.89 Activity, other specified; Y92.89 Other specified places as the place of occurrence of the external cause; Y99.8 Other external cause status
CPT/HCPCS: 99283

== ENCOUNTER 2019-06-06 09:18 | Day surgery (SDC) | payer MEDICAID, OTHER ==
[2019-06-06] MEDS ORDERED: LIDOcaine 2% 5ml jelly ONE (10:38)
== END 2019-06-06 11:30 | disposition home or self-care (01) ==
LOC: WOUND CARE 09:18
PROVIDERS: ATTEND Surgery
DX: T87.89 Other complications of amputation stump (principal); E11.621 Type 2 diabetes mellitus with foot ulcer; L97.512 Non-pressure chronic ulcer of other part of right foot with fat layer exposed; E11.65 Type 2 diabetes mellitus with hyperglycemia; E11.42 Type 2 diabetes mellitus with diabetic polyneuropathy; E78.5 Hyperlipidemia, unspecified; E11.69 Type 2 diabetes mellitus with other specified complication; M86.8X7 Other osteomyelitis, ankle and foot; E43 Unspecified severe protein-calorie malnutrition; F31.9 Bipolar disorder, unspecified; F17.210 Nicotine dependence, cigarettes, uncomplicated; F41.1 Generalized anxiety disorder; Z79.4 Long term (current) use of insulin; Z68.21 Body mass index [BMI] 21.0-21.9, adult; Z79.899 Other long term (current) drug therapy; Z79.2 Long term (current) use of antibiotics; Z98.890 Other specified postprocedural states; Y83.5 Amputation of limb(s) as the cause of abnormal reaction of the patient, or of later complication, without mention of misadventure at the time of the procedure
CPT/HCPCS: 97597; L3260; A4663; A6021; A6154; A6446

== ENCOUNTER 2019-06-16 17:38 | Emergency (ER) | payer MEDICAID, OTHER ==
[~2019-06-16] VITALS: Ht 170.2 cm; Wt 62.7 kg
[2019-06-16] MEDS ORDERED: normal saline 1000ML IV soln IVB ONE (17:50)
[2019-06-16] MEDS ORDERED: insulin regular, human 10 units/0.1 ml syringe IV ONE ×2 (17:55→20:05)
[2019-06-16] MEDS ORDERED: insulin regular, human 10 units/0.1 ml syringe SQ ONE (17:55)
[2019-06-16 18:30] LABS: BASOPHILS # (AUTO) 0.1 X10'3 (0-0.2); BASOPHILS % (AUTO) 0.8 % (0-1); EOSINOPHILS # (AUTO) 0.1 X10'3 (0-0.9); EOSINOPHILS % (AUTO) 0.8 % (0-6); HEMATOCRIT 26.2 % (42.0-52.0); HEMOGLOBIN 9.2 g/dl (14.0-17.9); LYMPHOCYTES % (AUTO) 12.3 % (21-51); MEAN CORPUSCULAR HEMOGLOBIN 29.2 PG (27.0-31.0); MEAN CORPUSCULAR VOLUME 83.2 FL (78-98); MEAN PLATELET VOLUME 6.7 FL (7.4-10.4); MONOCYTES # (AUTO) 0.4 X10'3 (0-0.9); MONOCYTES % (AUTO) 5.3 % (2-12); NEUTROPHILS # (AUTO) 6.8 X10'3 (1.8-7.7); NEUTROPHILS % (AUTO) 80.8 % (42-75); PLATELET COUNT 346 X10'3 (140-440); RED BLOOD COUNT 3.15 X10'6 (4.70-6.10); RED CELL DISTRIBUTION WIDTH 12.9 % (11.5-14.5); WHITE BLOOD COUNT 8.4 X10'3 (4.5-11.0)
[2019-06-16 18:39] LABS: CLARITY,URINE CLEAR (Clear); COLOR,URINE STRAW (Yellow); GLUCOSE, URINE >=1000 mg/dl (Neg); KETONES,URINE NEGATIVE (Neg); LEUKOCYTE ESTERASE ,URINE NEGATIVE (Neg); NITRITES, URINE NEGATIVE (Neg); OCCULT BLOOD,URINE TRACE-INTACT (Neg); PH,URINE 6.5 (4.8-8.0); PROTEIN,URINE NEGATIVE (Neg); UA COLLECTION TYPE VOIDED; UROBILINOGEN,URINE 0.2 E.U/dL (0.2-1.0)
[2019-06-16 18:44] LABS: MUCUS STRANDS NONE SEEN /LPF (Neg); SQUAMOUS EPITHELIAL CELL,UR FEW /LPF (FEW); YEAST FEW /HPF (NEGATIVE)
[2019-06-16 18:45] LABS: BACTERIA,URINE NONE SEEN /HPF (Neg); RBC,URINE 0-2 /HPF (0-2); WBC,URINE 0-4 /HPF (0-4)
[2019-06-16 18:50] LABS: ALANINE AMINOTRANSFERASE 52 U/L (12-78); ALBUMIN 2.5 G/DL (3.4-5.0); ALBUMIN/GLOBULIN RATIO 0.6 (1.1-1.5); ALKALINE PHOSPHATASE 210 IU/L (46-116); ANION GAP 7 (8-16); ASPARTATE AMINO TRANSFERASE 31 U/L (10-37); BILIRUBIN,TOTAL 0.3 MG/DL (0.1-1.0); BLOOD UREA NITROGEN 22 MG/DL (7-18); BUN/CREATININE RATIO 17.1 (5.4-32.0); CALCIUM 7.7 MG/DL (8.5-10.1); CHLORIDE 93 MMOL/L (99-107); CREATININE 1.29 MG/DL (0.60-1.10); POTASSIUM 3.1 MMOL/L (3.5-5.1); SODIUM 130 MMOL/L (135-145); TOTAL CARBON DIOXIDE 30.4 MMOL/L (24-32); TOTAL PROTEIN 6.9 G/DL (6.4-8.2); eGFR 57 ML/MIN
[2019-06-16 19:30] LABS: GLUCOSE 654 MG/DL (70-104)
[2019-06-16] MEDS ORDERED: LORazepam 1 MG tablet PO ONE (20:05)
[2019-06-16 21:13] VITALS: BP 129/61
[2019-06-17] MEDS ORDERED: INSU100I25 SQ ×2 (14:13→14:16)
[2019-06-17] MEDS ORDERED: POTA20TA19 PO (15:46)
[2019-06-17] MEDS ORDERED: FLUO20CA39 PO (20:29)
[2019-06-17] MEDS ORDERED: LITH300T3 PO (20:29)
== END 2019-06-16 21:19 | disposition home or self-care (01) ==
LOC: ER 17:40
DX: E86.0 Dehydration (principal); E11.65 Type 2 diabetes mellitus with hyperglycemia; F31.9 Bipolar disorder, unspecified; Z98.890 Other specified postprocedural states; Z56.0 Unemployment, unspecified; Z59.0 Homelessness; Z79.2 Long term (current) use of antibiotics; Z79.4 Long term (current) use of insulin; Z79.899 Other long term (current) drug therapy
CPT/HCPCS: 36415; 80053; 81001; 82948; 85025; 85610; 96361; 96372; 96374; 96376; 99283; J1815; J7030

== ENCOUNTER 2019-06-17 14:06 | Emergency (ER) | payer MEDICAID, OTHER ==
[~2019-06-17] VITALS: Ht 170.2 cm; Wt 64.1 kg
[2019-06-17] MEDS ORDERED: INSU100I25 SQ ×2 (14:13→14:16)
[2019-06-17] MEDS ORDERED: insulin regular, human 10 units/0.1 ml syringe SQ ONE (14:15)
[2019-06-17] MEDS ORDERED: insulin regular, human 10 units/0.1 ml syringe IV ONE (14:15)
[2019-06-17] MEDS ORDERED: normal saline 1000ML IV soln IVB ONE (14:15)
--- NOTE | 2019-06-17 14:45 | NUR ---
unable to void at this time,urinal given.
[2019-06-17 15:02] LABS: BASOPHILS % (AUTO) 0.6 % (0-1); EOSINOPHILS # (AUTO) 0.1 X10'3 (0-0.9); EOSINOPHILS % (AUTO) 1.2 % (0-6); LYMPHOCYTES # (AUTO) 1.1 X10'3 (1.1-4.8); LYMPHOCYTES % (AUTO) 14.2 % (21-51); MEAN CORPUSCULAR HEMOGLOBIN 28.8 PG (27.0-31.0); MEAN CORPUSCULAR HGB CONC 34.6 g/dL (33.0-36.5); MEAN CORPUSCULAR VOLUME 83.4 FL (78-98); MEAN PLATELET VOLUME 6.5 FL (7.4-10.4); MONOCYTES # (AUTO) 0.4 X10'3 (0-0.9); MONOCYTES % (AUTO) 5.5 % (2-12); NEUTROPHILS # (AUTO) 6.2 X10'3 (1.8-7.7); NEUTROPHILS % (AUTO) 78.5 % (42-75); PLATELET COUNT 391 X10'3 (140-440); RED BLOOD COUNT 3.48 X10'6 (4.70-6.10); WHITE BLOOD COUNT 7.9 X10'3 (4.5-11.0)
[2019-06-17 15:18] LABS: ALANINE AMINOTRANSFERASE 48 U/L (12-78); ALBUMIN 2.6 G/DL (3.4-5.0); ALBUMIN/GLOBULIN RATIO 0.6 (1.1-1.5); ALKALINE PHOSPHATASE 197 IU/L (46-116); ANION GAP 4 (8-16); ASPARTATE AMINO TRANSFERASE 27 U/L (10-37); BILIRUBIN,TOTAL 0.2 MG/DL (0.1-1.0); BLOOD UREA NITROGEN 13 MG/DL (7-18); BUN/CREATININE RATIO 11.3 (5.4-32.0); CALCIUM 7.5 MG/DL (8.5-10.1); CHLORIDE 100 MMOL/L (99-107); CREATININE 1.15 MG/DL (0.60-1.10); SODIUM 136 MMOL/L (135-145); TOTAL CARBON DIOXIDE 32.3 MMOL/L (24-32); TOTAL PROTEIN 6.8 G/DL (6.4-8.2); eGFR 65 ML/MIN
[2019-06-17 15:24] LABS: GLUCOSE 463 MG/DL (70-104); POTASSIUM 2.8 MMOL/L (3.5-5.1)
[2019-06-17] MEDS ORDERED: potassium Cl 20 mEq SR tablet PO STA (15:26)
[2019-06-17] MEDS ORDERED: POTA20TA19 PO (15:46)
[2019-06-17 16:01] VITALS: BP 141/92
[2019-06-17] MEDS ORDERED: FLUO20CA39 PO (20:29)
[2019-06-17] MEDS ORDERED: LITH300T3 PO (20:29)
== END 2019-06-17 16:08 | disposition home or self-care (01) ==
LOC: ER 14:06
DX: E11.65 Type 2 diabetes mellitus with hyperglycemia (principal); F31.9 Bipolar disorder, unspecified; F17.210 Nicotine dependence, cigarettes, uncomplicated; Z98.890 Other specified postprocedural states; Z59.0 Homelessness; Z56.0 Unemployment, unspecified; Z79.2 Long term (current) use of antibiotics; Z79.4 Long term (current) use of insulin; Z79.899 Other long term (current) drug therapy
CPT/HCPCS: 36415; 80053; 85025; 96361; 96372; 96374; 99283; J1815; J7030; 82948

== ENCOUNTER 2019-06-17 18:09 | Emergency (ER) | payer OTHER, MEDICAID ==
[~2019-06-17] VITALS: Ht 170.2 cm; Wt 59.2 kg
[~2019-06-17 18:09] MED LIST changes: +INSU100I25 SQ; +POTA20TA19 PO
[2019-06-17 19:45] LABS: BASOPHILS # (AUTO) 0.1 X10'3 (0-0.2); BASOPHILS % (AUTO) 0.9 % (0-1); EOSINOPHILS # (AUTO) 0.1 X10'3 (0-0.9); EOSINOPHILS % (AUTO) 1.6 % (0-6); HEMOGLOBIN 9.5 g/dl (14.0-17.9); LYMPHOCYTES # (AUTO) 1.1 X10'3 (1.1-4.8); LYMPHOCYTES % (AUTO) 13.7 % (21-51); MEAN CORPUSCULAR HEMOGLOBIN 28.5 PG (27.0-31.0); MEAN CORPUSCULAR HGB CONC 33.9 g/dL (33.0-36.5); MEAN CORPUSCULAR VOLUME 84.2 FL (78-98); MEAN PLATELET VOLUME 6.6 FL (7.4-10.4); MONOCYTES # (AUTO) 0.5 X10'3 (0-0.9); MONOCYTES % (AUTO) 6.6 % (2-12); NEUTROPHILS # (AUTO) 6.2 X10'3 (1.8-7.7); NEUTROPHILS % (AUTO) 77.2 % (42-75); PLATELET COUNT 386 X10'3 (140-440); RED BLOOD COUNT 3.32 X10'6 (4.70-6.10); RED CELL DISTRIBUTION WIDTH 13.6 % (11.5-14.5)
--- NOTE | 2019-06-17 19:59 | NUR ---
pt denies s/h/i @ this time. Pt denies audio/visual hallucinations at this time. pt reports being off his psychotropics meds (Prozac and lithium) for bipolar II. Pt states "i get scared easily and just want to be checked in someplace, like [place]. Its scary on the streets." He additionally reports "being medically cleared earlier for placement in [place]."
[2019-06-17 20:06] LABS: ALANINE AMINOTRANSFERASE 49 U/L (12-78); ALBUMIN 2.6 G/DL (3.4-5.0); ALBUMIN/GLOBULIN RATIO 0.6 (1.1-1.5); ALKALINE PHOSPHATASE 183 IU/L (46-116); ANION GAP 6 (8-16); ASPARTATE AMINO TRANSFERASE 29 U/L (10-37); BILIRUBIN,TOTAL 0.2 MG/DL (0.1-1.0); BLOOD UREA NITROGEN 11 MG/DL (7-18); BUN/CREATININE RATIO 11.5 (5.4-32.0); CALCIUM 7.6 MG/DL (8.5-10.1); CHLORIDE 103 MMOL/L (99-107); CREATININE 0.96 MG/DL (0.60-1.10); GLUCOSE 399 MG/DL (70-104); POTASSIUM 3.1 MMOL/L (3.5-5.1); SODIUM 139 MMOL/L (135-145); TOTAL CARBON DIOXIDE 30.2 MMOL/L (24-32); TOTAL PROTEIN 6.8 G/DL (6.4-8.2); eGFR 80 ML/MIN
[2019-06-17 20:15] LABS: ETHANOL < 0.010 GM/DL (0.0-0.010)
[2019-06-17] MEDS ORDERED: potassium Cl 20 mEq SR tablet PO STA (20:21)
[2019-06-17 20:29] VITALS: BP 147/77
[2019-06-17] MEDS ORDERED: FLUO20CA39 PO (20:29)
[2019-06-17] MEDS ORDERED: LITH300T3 PO (20:29)
--- NOTE | 2019-06-17 20:35 | NUR ---
Discussed number of ed visits this year alone with pt. explained the number is viewed as excessive especially give [facility] verbalized understanding and [facility]
[2019-06-17 21:19] LABS: URINE AMPHETAMINE SCREEN NEGATIVE (Neg); URINE BARBITUATE SCREEN NEGATIVE (Neg); URINE BENZODIAZEPINES SCREEN NEGATIVE (Neg); URINE CANNABINOID SCREEN NEGATIVE (Neg); URINE COCAINE SCREEN NEGATIVE (Neg); URINE METHADONE SCREEN NEGATIVE (Neg); URINE OPIATE SCREEN NEGATIVE (Neg); URINE PHENCYCLIDINE SCREEN NEGATIVE (Neg)
== END 2019-06-17 20:42 | disposition home or self-care (01) ==
LOC: ER 18:09
DX: E11.9 Type 2 diabetes mellitus without complications (principal); F31.9 Bipolar disorder, unspecified; Z98.890 Other specified postprocedural states; Z59.0 Homelessness; Z56.0 Unemployment, unspecified; Z79.4 Long term (current) use of insulin; Z79.2 Long term (current) use of antibiotics; Z79.899 Other long term (current) drug therapy
CPT/HCPCS: 36415; 80053; 80305; 80320; 82948; 85025; 99283

== ENCOUNTER 2019-08-04 06:31 | Inpatient (IN) | payer MEDICAID, OTHER ==
[~2019-08-04] VITALS: Ht 170.2 cm; Wt 68.0 kg
[~2019-08-04 06:31] MED LIST changes: +LITH300T3 PO; -POTA20TA19 PO
[2019-08-04 06:53] LABS: BASOPHILS # (AUTO) 0.1 X10'3 (0-0.2); BASOPHILS % (AUTO) 0.8 % (0-1); EOSINOPHILS # (AUTO) 0.2 X10'3 (0-0.9); EOSINOPHILS % (AUTO) 2.5 % (0-6); HEMATOCRIT 31.5 % (42.0-52.0); HEMOGLOBIN 10.7 g/dl (14.0-17.9); LYMPHOCYTES # (AUTO) 0.8 X10'3 (1.1-4.8); LYMPHOCYTES % (AUTO) 10.7 % (21-51); MEAN CORPUSCULAR HEMOGLOBIN 29.6 PG (27.0-31.0); MEAN CORPUSCULAR HGB CONC 33.9 g/dL (33.0-36.5); MEAN CORPUSCULAR VOLUME 87.4 FL (78-98); MEAN PLATELET VOLUME 6.4 FL (7.4-10.4); MONOCYTES # (AUTO) 0.4 X10'3 (0-0.9); MONOCYTES % (AUTO) 6.1 % (2-12); NEUTROPHILS # (AUTO) 5.7 X10'3 (1.8-7.7); NEUTROPHILS % (AUTO) 79.9 % (42-75); PLATELET COUNT 382 X10'3 (140-440); RED CELL DISTRIBUTION WIDTH 15.6 % (11.5-14.5); WHITE BLOOD COUNT 7.1 X10'3 (4.5-11.0)
[2019-08-04 06:59] LABS: CLARITY,URINE CLEAR (Clear); COLOR,URINE STRAW (Yellow); GLUCOSE, URINE NEGATIVE (Neg); KETONES,URINE NEGATIVE (Neg); LEUKOCYTE ESTERASE ,URINE NEGATIVE (Neg); NITRITES, URINE NEGATIVE (Neg); OCCULT BLOOD,URINE NEGATIVE (Neg); PH,URINE 6.5 (4.8-8.0); PROTEIN,URINE NEGATIVE (Neg); UROBILINOGEN,URINE 0.2 E.U/dL (0.2-1.0)
[2019-08-04 07:03] LABS: UA COLLECTION TYPE CLN CATCH MIDSTREAM
[2019-08-04 07:09] LABS: URINE AMPHETAMINE SCREEN NEGATIVE (Neg); URINE BARBITUATE SCREEN NEGATIVE (Neg); URINE BENZODIAZEPINES SCREEN NEGATIVE (Neg); URINE CANNABINOID SCREEN NEGATIVE (Neg); URINE COCAINE SCREEN NEGATIVE (Neg); URINE METHADONE SCREEN NEGATIVE (Neg); URINE OPIATE SCREEN NEGATIVE (Neg); URINE PHENCYCLIDINE SCREEN NEGATIVE (Neg)
[2019-08-04 07:10] LABS: ALANINE AMINOTRANSFERASE 33 U/L (12-78); ALBUMIN 3.2 G/DL (3.4-5.0); ALBUMIN/GLOBULIN RATIO 0.7 (1.1-1.5); ALKALINE PHOSPHATASE 92 IU/L (46-116); ANION GAP 11 (8-16); ASPARTATE AMINO TRANSFERASE 26 U/L (10-37); BILIRUBIN,TOTAL 0.2 MG/DL (0.1-1.0); BLOOD UREA NITROGEN 18 MG/DL (7-18); BUN/CREATININE RATIO 17.6 (5.4-32.0); CALCIUM 8.9 MG/DL (8.5-10.1); CHLORIDE 105 MMOL/L (99-107); CREATININE 1.02 MG/DL (0.60-1.10); ETHANOL < 0.010 GM/DL (0.0-0.010); GLUCOSE 132 MG/DL (70-104); POTASSIUM 3.9 MMOL/L (3.5-5.1); SODIUM 141 MMOL/L (135-145); eGFR 75 ML/MIN
[2019-08-04 07:37] LABS: PARTIAL THROMBOPLASTIN TIME 27 SECONDS (22-32)
--- NOTE | 2019-08-04 07:48 | NUR ---
Dr Fritz at bedside to assess pt. Pt ALOC ordered for STAT BS. BS resulted "low". 1 amp D50 given to pt. pt awakened. will recheck BS in 15 min. Ordered additional amp in 15 min if BS still low.
[2019-08-04] MEDS ORDERED: dextrose 50%-water 50ml dispensing syringe IV ONE ×3 (07:51→07:55)
[2019-08-04] MEDS ORDERED: Dextrose 10%-water IV solution 1,000 ML IV ONE (07:52)
[2019-08-04] MEDS ORDERED: ondansetron/PF 4mg/2ml inj IV PRN (10:20)
[2019-08-04] MEDS ORDERED: acetaminophen 325mg tablet PO PRN (10:20)
[2019-08-04] MEDS ORDERED: magnesium hydroxide 30ml (MOM) UD suspension PO PRN (10:20)
[2019-08-04] MEDS ORDERED: mag hydrox/Alum hydrox/simeth 30ml oral suspension PO PRN (10:20)
[2019-08-04] MEDS: sodium chloride inj. 154 MEQ in Dextrose 10%-water IV solution 961.5 ML IV SCH (11:35)
--- NOTE | 2019-08-04 11:43 | NUR ---
Rodrigue lorenzana in [facility] - 08/04/19 at 1144 by MYLENE Photos of the patient's wound on the right foot/amup
--- NOTE | 2019-08-04 11:44 | NUR ---
Wound photos of the patient's right foot/amputation taken and placed in the chart. Dressing applied to the wound. Awaiting inpatient bed assignment.
--- NOTE | 2019-08-04 12:14 | NUR ---
Pt noted having seizure activity. Pt airway protected. Dr. Fritz to the bedside. Accucheck rechecked, 277. Pt given ativan 2mg IV for seizure activity. New IV access initiated at this time.
[2019-08-04] MEDS ORDERED: LORazepam 2 mg/ml vial IV ONE (12:20)
[2019-08-04] MEDS ORDERED: levetiracetam inj 1,000 MG in normal saline 100ml IV soln 90 ML IV STA (12:22)
[2019-08-04] MEDS ORDERED: Levetiracetam-NS 500mg/100ml 100 ML IV STA ×2 (12:28→13:22)
[2019-08-04] MEDS ORDERED: levetiracetam-NS 1000mg/100ml 100 ML IV STA (12:30)
[2019-08-04] MEDS ORDERED: CEPH500C2 PO (13:58)
[2019-08-04] MEDS ORDERED: TERA1CAP4 PO (13:58)
[2019-08-04] MEDS ORDERED: METO25TA6 PO (13:58)
[2019-08-04] MEDS ORDERED: LITH450T2 PO (13:58)
[2019-08-04] MEDS ORDERED: INSU100I25 SQ (13:58)
[2019-08-04] MEDS ORDERED: CADE40GE2 TP (13:58)
--- NOTE | 2019-08-04 14:30 | NUR ---
Patient arrived on unit, patient is groaning repeatedly, per ED nurse this is baseline for his current visit. Patient did not respond when asked if he was having pain. He was demanding water. Patient is on D10 at 100ml/hr and currently eating his lunch. seizure pads were placed on bed with 4 rails up for seizure precautions. VSS, will continue to monitor.
[2019-08-04 14:44] VITALS: BP 136/103
[2019-08-04] MEDS ORDERED: LORazepam 2 mg/ml vial IV PRN (14:50)
[2019-08-04 15:00] VITALS: BP 164/94
--- NOTE | 2019-08-04 15:15 | NUR ---
PAGER ID: [phone] MESSAGE: CHERIE Barnes, ext [phone] Anatoliy, last BG 201, when are we stopping the D10? Are we initiating hyperglycemic protocol?
--- NOTE | 2019-08-04 18:30 | NUR ---
Problems reprioritized. Patient report given, questions answered & plan of care reviewed with CHERIE Simons. Patient stable at shift change.
[2019-08-04 19:00] VITALS: BP 156/68
[2019-08-04] MEDS ORDERED: heparin, porcine 5000 units/ml vial SQ SCH (20:00)
[2019-08-04] MEDS: Levetiracetam-NS 500mg/100ml 100 ML IV SCH (20:02)
--- NOTE | 2019-08-04 21:10 | NUR ---
Recently high blood sugar levels over 300 has been reported to the MD. MD has now ordered that the D10 fluid be adjusted from 100 MLS/HR to 60 MLS/HR. Will continue to monitor BGLs continuously.
[2019-08-04 23:00] VITALS: BP 140/72
--- NOTE | 2019-08-04 23:30 | NUR ---
Patient refused MRSA nasal swab that is ordered per protocol upon admission. Patient also refusing to answer DART admission questions.
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
[2019-08-05] MEDS: sodium chloride inj. 154 MEQ in Dextrose 10%-water IV solution 961.5 ML IV SCH (00:02)
[2019-08-05 03:00] VITALS: BP 159/73
[2019-08-05 05:57] LABS: BASOPHILS # (AUTO) 0.1 X10'3 (0-0.2); BASOPHILS % (AUTO) 1.1 % (0-1); EOSINOPHILS # (AUTO) 0.2 X10'3 (0-0.9); HEMATOCRIT 31.6 % (42.0-52.0); HEMOGLOBIN 10.8 g/dl (14.0-17.9); LYMPHOCYTES % (AUTO) 20.9 % (21-51); MEAN CORPUSCULAR HEMOGLOBIN 29.7 PG (27.0-31.0); MEAN CORPUSCULAR HGB CONC 34.3 g/dL (33.0-36.5); MEAN CORPUSCULAR VOLUME 86.6 FL (78-98); MEAN PLATELET VOLUME 6.5 FL (7.4-10.4); MONOCYTES # (AUTO) 0.4 X10'3 (0-0.9); MONOCYTES % (AUTO) 7.9 % (2-12); NEUTROPHILS # (AUTO) 3.2 X10'3 (1.8-7.7); NEUTROPHILS % (AUTO) 65.1 % (42-75); PLATELET COUNT 356 X10'3 (140-440); RED BLOOD COUNT 3.65 X10'6 (4.70-6.10); RED CELL DISTRIBUTION WIDTH 15.6 % (11.5-14.5)
[2019-08-05 06:00] VITALS: BP 149/71
[2019-08-05 06:02] LABS: ALBUMIN 2.9 G/DL (3.4-5.0); ANION GAP 10 (8-16); BLOOD UREA NITROGEN 13 MG/DL (7-18); BUN/CREATININE RATIO 12.9 (5.4-32.0); CALCIUM 9.6 MG/DL (8.5-10.1); CHLORIDE 106 MMOL/L (99-107); CREATININE 1.01 MG/DL (0.60-1.10); GLUCOSE 296 MG/DL (70-104); SODIUM 141 MMOL/L (135-145); TOTAL CARBON DIOXIDE 25.5 MMOL/L (24-32); eGFR 76 ML/MIN
--- NOTE | 2019-08-05 06:05 | NUR ---
Patient in room PCU 3022. I have received report from CHERIE Simons and had the opportunity to ask questions and assume patient care.
--- NOTE | 2019-08-05 06:35 | NUR ---
Problems reprioritized. Patient report given, questions answered & plan of care reviewed with CHERIE Suazo.
--- NOTE | 2019-08-05 07:17 | NUR ---
Smith Cope Rm 7482 last 5 blood sugars have been >250. Receiving D10@60ml/hr Lakeisha ex [id number] page to [facility]
[2019-08-05] MEDS: Levetiracetam-NS 500mg/100ml 100 ML IV SCH (08:00)
--- NOTE | 2019-08-05 10:24 | NUR ---
Smith Cope Rm 3662 defers IV Keppra and needs insulin slide scale for DMII CHERIE Suazo ext [phone] page to [facility]
[2019-08-05] MEDS ORDERED: dextrose ORAL solution 15 GM/59 ML bottle PO PRN ×2 (10:50)
[2019-08-05] MEDS ORDERED: dextrose 50%-water 50ml dispensing syringe IV PRN ×2 (10:50)
[2019-08-05] MEDS ORDERED: glucagon, human recombinant 1mg kit SUBCUT PRN (10:50)
[2019-08-05] MEDS ORDERED: MESSAGE TO PHARMACY PO ONE (10:50)
[2019-08-05] MEDS ORDERED: insulin Lispro (HumaLOG) vial - multi-dose SQ SCH (10:50)
[2019-08-05 11:00] VITALS: BP 146/75
--- NOTE | 2019-08-05 11:53 | NUR ---
DM consult. Patient's A1c is 12.3, previously was 11.1, Patient given written DM education handout with verbal review and referral to outpatient DM education class on Thursday. Patient verbalized understanding of needing protein. Patient reports that he provides himself insulin four times a day, three times for each meal and the fourth for long acting. His A1c continues to be elevated despite reporting taking his insulin as directed. Patient was seen at bedside by RD during his last admission and did received written and verbal DM and high protein education at that time, pt was receptive to education today and the importance of eating very high protein food for healing from his infection and wound was discussed. Spoke with bedside RN this morning, patient requesting double protein, discussed with dietary to send double protein with all meals. Addendum: 08/05/19 at [address] Amended: Links added.
[2019-08-05 15:00] VITALS: BP 132/68
--- NOTE | 2019-08-05 15:59 | NUR ---
[facility] He is in stable condition A&Ox4, R foot was dressed and extra wound care supplies were sent with pt. [facility] Continue prescribed medications. Health and well being discussed with pt. He was taken by to curbside cab waiting for [facility].
[2019-08-05] MEDS ORDERED: insulin glargine (Lantus) pen - multi-dose SQ SCH (21:00)
== END 2019-08-05 15:22 | disposition home or self-care (01) | DRG 420 ==
LOC: ER 06:32 → ED HOLD 11:38 → EDBEDREQ 13:49 → PCU 3S 15:02
PROVIDERS: ADMIT Family Medicine; ATTEND Family Medicine
DX: E11.649 Type 2 diabetes mellitus with hypoglycemia without coma (principal); G93.41 Metabolic encephalopathy; E44.0 Moderate protein-calorie malnutrition; R56.9 Unspecified convulsions; E11.42 Type 2 diabetes mellitus with diabetic polyneuropathy; E78.5 Hyperlipidemia, unspecified; Z60.2 Problems related to living alone; D64.9 Anemia, unspecified; F41.1 Generalized anxiety disorder; F60.9 Personality disorder, unspecified; Z59.0 Homelessness; Z86.14 Personal history of Methicillin resistant Staphylococcus aureus infection; Z89.431 Acquired absence of right foot; Z68.23 Body mass index [BMI] 23.0-23.9, adult
CPT/HCPCS: 36415; 70450; 71045; 80048; 80053; 80305; 80320; 81003; 82948; 83036; 85025; 85610; 85730; 93005; 96365; 96366; 99285; G0378; J1644; J1815; J1953; J2060; J7131